=== PATIENT | male | born 1975 | race Two or more races ===

== ENCOUNTER 2024-06-15 10:49 | Outpatient (AMB) | payer MEDICAID, SELFPAY ==
--- NOTE | 2024-06-15 08:48 | PD.RESCLINIC ---
Vital Signs 06/15/24 11:07 Height 1.78 m Height Method Stated Weight 98.033 kg Weight Measurement Method Standing Scale BMI 30.9 BP 121/81 Blood Pressure Source Automatic Cuff Blood Pressure Location Left Upper Arm Position Sitting Respiration 16 Pulse 74 Pulse Source Monitor Temp 97.2 F Temp Source Oral Pulse Oximetry (%) 98 Oxygen Delivery Method Room Air Allergies/Meds Allergies & Medications Allergies No Known Allergies Allergy (Verified 06/15/24 11:08) Medication Reconciliation atorvastatin 80 mg tablet 80 mg PO QPM #30 tabs 09/06/22 [Rx Confirmed 06/15/24] fenofibrate 150 mg capsule 150 mg PO QDAY #30 caps 09/06/22 [Rx Confirmed 06/15/24] ibuprofen 800 mg tablet 800 mg PO TID PRN pain #30 tabs 07/28/23 [Rx Confirmed 06/15/24] aspirin 81 mg tablet,delayed release (Adult Aspirin Regimen) 81 mg PO HS #30 tabs 06/01/24 [Rx Confirmed 06/15/24] lisinopril 5 mg tablet 5 mg PO QDAY #30 tabs 06/01/24 [Rx Confirmed 06/15/24] omega 8-xhm-jks-fish oil 300 mg-1,000 mg capsule (Fish Oil) 1 cap PO QDAY #30 caps 06/01/24 [Rx Confirmed 06/15/24] dapagliflozin propanediol 5 mg tablet (Farxiga) 5 mg PO QAM #30 tabs 06/15/24 [Rx] metformin 1,000 mg tablet 1,000 mg PO QDAY #30 tabs 06/15/24 [Rx] MA Intake Visit Data Collection New Patient or Established: Established Patient (seen at [facility] within 3 years) Seen by Clinical Staff ONLY (RN/MA): No Pain Present Currently: Yes Pain Location: Head Pain scale:: 5 Pain Scale Used: De La Cruz-Angel/Numerical Coating And Baking Operator Required: No PCP or OBGYN visit in last 3 months: Yes Hx Now: Yes Do You Feel Safe at Home: Yes Authorities Contacted: N/A Smoking Status Smoking Status: Never smoker Immunization / Flu Flu Vaccine in the Last 12 Months: No Flu Vaccine Exclusion Criteria: No Exclusion Criteria Past Medical History Past Medical History NEUROLOGIC: Negative Neurological Disorders or Seizures CARDIAC: Positive Hypercholesterolemia; Negative Cardiac Disorders or Congestive Heart Failure RESPIRATORY: Negative Chronic Obstructive Pulmonary Disease (COPD) or Asthma GASTROINTESTINAL: Positive Gastrointestinal Disorders and Pancreatitis (similar episode two years ago with dietary precipitant) GENITOURINARY: Negative Genitourinary Disorders or Renal Disease REPRODUCTIVE: Negative Breast Cancer ENDOCRINE: Positive Endocrine Disorders and Diabetes Mellitus Type 2; Negative Diabetes Mellitus Type 1 HEMATOLOGIC: Negative Blood Disorders or Sickle Cell Disease OTHER HISTORY: Positive Hospitalization (Pancreatitis); Negative Blood Transfusions, Blood Transfusion Reaction, Anesthesia Reactions, Organ Transplant, Chemotherapy, Radiation Therapy, Hyperbaric Therapy, MRSA, VRSA, Vancomycin-Resistant Enterococci, Clostridium Difficile, Cancer or Breast Cancer Family History FAMILY HISTORY: Negative Family Respiratory Disorders, Family Cardiac Disorders, Family Gastrointestinal Problems, Family Cancer, Family Surgery or Family Anesthesia Reaction Surgical History SURGICAL: Positive Abdominal Surgery (None); Negative Cardiac Surgery, Endocrine Surgery, Thyroidectomy, Ear Surgery, Neurologic Surgery, Brain Shunt, Mastectomy, Vasectomy or Organ Transplant Social History SMOKING STATUS: Smoking status: Never smoker PACK YEARS: Pack-Years: 20 SECOND HAND EXPOSURE: second hand exposure: No ALCOHOL: Alcohol Intake: Former ALCOHOL FREQUENCY: Alcohol Intake Frequency: holidays/special occasions only HOUSING: Housing: House LIVES WITH: Lives With: Family and Spouse Patient Portal Questionaires PHQ-9 PHQ-2 Over the last 2 weeks, how often have you been bothered by any of the following problems? 1. Little interest or pleasure in doing things: not at all 2. Feeling down, depressed, or hopeless: not at all Total score: 0 PHQ-9 3. Trouble falling or staying asleep, or sleeping too much: Not at all 4. Feeling tired or having little energy: Not at all 5. Poor appetite or overeating: Not at all 6. Feeling bad about yourself - or that you are a failure or have let yourself or your family down: Not at all 7. Trouble concentrating on things, such as reading the newspaper or watching television: Not at all 8. Moving or speaking so slowly that other people could have noticed? - Or the opposite - being so fidgety or restless that you have been moving around a lot more than usual: not at all 9. Thoughts that you would be better off or of hurting yourself in some way: Not at all Total score: 0 If you checked off any problems, how difficult have these problems made it for you to do your work, take care of things at home, or get along with other people?: not difficult at all Source: Developed by Drs. Jose Olguin, Marcia Sahu, Hunter Amor and colleagues, with an educational nigel from [employer]. Depression screen completed yes Social History Living Situation History Marital Status: Single Lives With: Family Housing: House Tobacco History Smoking Status: Never smoker Pack-Years: 20 Second Hand Smoke Exposure: No Alcohol History Alcohol Intake: Former Alcohol Intake Frequency: holidays/special occasions only Domestic Abuse History Do You Feel Safe at Home: Yes Review of Systems Report any current symptoms Only answer those that you have currently: Past Medical History Past Medical History Have you ever been diagnosed with any of the following: Neurological Problems Seizures: No Cardiology Problems Hypercholesterolemia: Yes Congestive Heart Failure: No Respiratory Problems Chronic Obstructive Pulmonary Disease (COPD): No Asthma: No Stomache/Intestinal Problems Pancreatitis: Yes (similar episode two years ago with dietary precipitant) Genital/Urinary Problems Renal Disease: No Reproductive Problems Breast Cancer: No Endocrine Problems Diabetes Mellitus Type 1: No Diabetes Mellitus Type 2: Yes Blood Problems Sickle Cell Disease: No Other Problems Hospitalization: Yes (Pancreatitis) Blood Transfusions: No Blood Transfusion Reaction: No Anesthesia Reactions: No Organ Transplant: No Chemotherapy: No Radiation Therapy: No Hyperbaric Therapy: No MRSA: No VRSA: No Vancomycin-Resistant Enterococci: No Clostridium Difficile: No Cancer: No Surgical History Thyroidectomy: No History of Present Illness HPI Narrative 05/10/24: Tele visit appt following up for recurrent pancreatitis. He was previously admitted for acute pancreatitis and found to have hypertriglyceridemia. History of recurrent pancreatitis in the past. Currently on high-dose statin and fenofirate which she is taking daily. Here for annual visit and repeat lipid panel. Has mild epigastric pain. Denies headaches, dizziness, lightheadedness, chest pain, shortness of breath, cough, GI or urinary symptoms. Currently not drinking alcohol or using tobacco. 06/01/24: Tele vist, follow-up on lab orderes. Feels well, no complaints at this time. We had a discussion regarding lifestyle and overall health. He states he is taking his medications as prescribed. Avoiding sugar and high carb except for bread which he is working on cutting down. Trying to implement an daily exercise routine which includes 30 to 45 minutes of brisk walking daily. New labs showed elevated triglycerides 1269, GLUCOSE 291 and A1c 12.2. We started new medications for diabetes and hyperlipidemia. Will order a test for FHS and follow-up with labs. 06/15/24: In-person follow-up after starting JANUMET and NIACIN/OMEGA-3. His test for FHS came back negative. Unclear if he qulifies for OLEZARSEN but we will follow-up after repeat lipid panel in 2 months. Also follow-up on DM after starting JANUMET. Will give FREESTYLE sensor today and see how he is doing with JANUMET. Review of Systems Review of Systems Narrative Review of Systems: GENERAL: Denies fevers/chills or diaphoresis. HEENT: Denies headache or visual/hearing changes. Denies nasal discharge. NEURO: Denies unusual weakness or difficulty speaking. CARDIO: Denies chest pain or palpitations. PULM: Denies SOB, coughing, or wheezing. GI: Denies abdominal pain, N/V/C/D/reflux/gas, bright red blood per rectum or melena. Reports having BMs. URO: Denies burning/itching/pain/urinary changes. MSK/EXT/SKIN: Denies joint/skeletal/muscle pain, issues/changes in upper or lower extremities, itchiness, or superficial pain. PSYCH: Cooperative, pleasant mood & affect. The rest of the review of systems is otherwise negative. Objective/Exam Narrative Physical exam: GENERAL Normal appearing adult male. HEENT NCAT.?JACQUIE. Oral mucosa is moist. Patent Nares NECK Supple, nontender, no thyromegaly, no meningismus, no JVD, no step offs CHEST RRR, no m/g/r CTAB, no w/r/r. Symmetrical chest rise. No intercostal subcostal retraction Atraumatic, nontender, no crepitus, symmetrical expansion. ABDOMEN Soft, flat, nontender. No guarding/rebound tenderness/masses. Bowel sounds presents EXTREMITIES No edema/cyanosis.? SKIN Warm and dry, no jaundice/rashes. NEUROMUSCULAR No lumbar or midline, no CVA, no paraspinal muscle spasm or tenderness. Moves all 4 extremities well, with full ROM and good CSM. NUNEZ x4, CN II-XII grossly intact. No focal neurologic deficits. PSYCHIATRY Normal mood and affect, cooperative, no SI or HI or hallucinations. Assessment & Plan Diagnosis / Problem List (1) Diabetes mellitus: Status: Chronic Assessment & Plan: Newly diagnosed diabetes with A1C > 12 Did not tolerate JANUMET 2/2 GI upsets. Not checking glucose currently. In office fignerstick glucose 230. Refused insulin at this time Plan: Discontinue JANUMET Started Metformin 1000 mg daily Started FARXIGA 5 mg daily Given Free-style pastor 3 Continue lifestyle modifications as per discussion (2) Hypertriglyceridemia: Status: Chronic Assessment & Plan: Currently on ATORVASTATIN 80 mg and FENOFIBRATE 150 mg daily. Negative work-up for familial metabolic disorder. Likely related to hyperglycemia, anticipate improvement with better glycemic control Plan: Continue with current meds Discontinued NIACIN Continue glycemic control Repeat labs in 6 months (3) Knee pain, bilateral: Status: Acute Qualifiers: Chronicity: chronic Qualified Code(s): M25.561 - Pain in right knee; M25.562 - Pain in left knee; G89.29 - Other chronic pain Assessment & Plan: Has chronic ongoing bilateral knee pain, worse with activity, not worse in AM. Previously used PT which was helpful. Plan: Referral physical therapy (4) Former smoker, stopped smoking in distant past: Status: Chronic Assessment & Plan: Has 30-pack year history of tobacco smoking, quit 5 years ago. Denies active respiratory symptoms Plan: Ordered low-dose CT chest. Orders: Orders CT lung low-dose screening wo 06/15/24 Z72.0 - Tobacco use Referrals Physical Therapy - Referral M25.561 - Pain in right knee, M25.562 - Pain in left knee Office Procedures [facility] Level of Care Nursing/Assessment Patient Status: Established Patient Nursing Assessment/Reassessment: BP Monitoring, Medication Reconciliation, Update PMH in EMR and Vital Signs Coordination of Care: Complex Care and Chronic Disease 1-5, Consent,records obtained, informed consent, Education Simp Pt/Fam, Results/Orders obtained and Staff clarify orders Established Patient Charge Established Patient Point Assignment: 105 Established Patient Point Charge: EP Level 3 (80-115) Bedisde Glucose POC Ambulatory Location Ambulatory Dept Location: [facility] Glucose Result Bedside Glucose Monitorin
[2024-06-15 11:07] VITALS: BP 121/81; PULSE 74; RESP 16; TEMP 36.2; O2SAT 98; BMI 30.9
== END 2024-06-15 14:47 | disposition home or self-care (01) ==
LOC: HODAHC 10:49
PROVIDERS: Supervising Provider Internal Medicine
DX: E11.9 Type 2 diabetes mellitus without complications (principal); E78.1 Pure hyperglyceridemia; M25.562 Pain in left knee; M25.561 Pain in right knee; Z87.891 Personal history of nicotine dependence
CPT/HCPCS: 82948; 99213; G0463

== ENCOUNTER 2024-06-29 11:10 | Outpatient (AMB) | payer MEDICAID, SELFPAY ==
[2024-06-29 11:49] VITALS: BP 144/92; PULSE 67; RESP 16; TEMP 36.2; O2SAT 97; BMI 31.5
--- NOTE | 2024-06-29 11:49 | ACNOTE_ITS ---
Vital Signs 06/29/24 11:49 Height 1.78 m Height Method Stated Weight 99.847 kg Weight Measurement Method Standing Scale BMI 31.5 BP 144/92 H Blood Pressure Source Automatic Cuff Blood Pressure Location Left Upper Arm Position Sitting Respiration 16 Pulse 67 Pulse Source Monitor Temp 97.2 F Temp Source Temporal Artery Scan Pulse Oximetry (%) 97 Oxygen Delivery Method Room Air Allergies/Meds Allergies & Medications Allergies No Known Allergies Allergy (Verified 06/29/24 11:50) Medication Reconciliation ibuprofen 800 mg tablet 800 mg PO TID PRN pain #30 tabs 07/28/23 [Rx Confirmed 06/15/24] aspirin 81 mg tablet,delayed release (Adult Aspirin Regimen) 81 mg PO HS #30 tabs 06/01/24 [Rx Confirmed 06/15/24] lisinopril 5 mg tablet 5 mg PO QDAY #30 tabs 06/01/24 [Rx Confirmed 06/15/24] omega 7-yjx-bhb-fish oil 300 mg-1,000 mg capsule (Fish Oil) 1 cap PO QDAY #30 caps 06/01/24 [Rx Confirmed 06/15/24] dapagliflozin propanediol 5 mg tablet (Farxiga) 5 mg PO QAM #30 tabs 06/15/24 [Rx] metformin 1,000 mg tablet 1,000 mg PO QDAY #30 tabs 06/15/24 [Rx] atorvastatin 80 mg tablet 80 mg PO QPM #30 tabs 06/27/24 [Rx Confirmed 06/29/24] famotidine 20 mg tablet 20 mg PO QDAY #30 tabs 06/27/24 [Rx Confirmed 06/29/24] fenofibrate 150 mg capsule 150 mg PO QDAY #30 caps 06/27/24 [Rx Confirmed 06/29/24] MA Intake Visit Data Collection New Patient or Established: Established Patient (seen at [facility] within 3 years) Seen by Clinical Staff ONLY (RN/MA): No Pain Present Currently: No Pain Scale Used: De La CruzLatha/Numerical Receipt And Report Clerk Required: No PCP or OBGYN visit in last 3 months: Yes Hx Now: No Do You Feel Safe at Home: Yes Authorities Contacted: N/A Smoking Status Smoking Status: Never smoker Immunization / Flu Flu Vaccine in the Last 12 Months: No Flu Vaccine Exclusion Criteria: No Exclusion Criteria Past Medical History Past Medical History NEUROLOGIC: Negative Neurological Disorders or Seizures CARDIAC: Positive Hypercholesterolemia; Negative Cardiac Disorders or Congestive Heart Failure RESPIRATORY: Negative Chronic Obstructive Pulmonary Disease (COPD) or Asthma GASTROINTESTINAL: Positive Gastrointestinal Disorders and Pancreatitis (similar episode two years ago with dietary precipitant) GENITOURINARY: Negative Genitourinary Disorders or Renal Disease REPRODUCTIVE: Negative Breast Cancer ENDOCRINE: Positive Endocrine Disorders and Diabetes Mellitus Type 2; Negative Diabetes Mellitus Type 1 HEMATOLOGIC: Negative Blood Disorders or Sickle Cell Disease OTHER HISTORY: Positive Hospitalization (Pancreatitis); Negative Blood Transfusions, Blood Transfusion Reaction, Anesthesia Reactions, Organ Transplant, Chemotherapy, Radiation Therapy, Hyperbaric Therapy, MRSA, VRSA, Vancomycin-Resistant Enterococci, Clostridium Difficile, Cancer or Breast Cancer Family History FAMILY HISTORY: Negative Family Respiratory Disorders, Family Cardiac Disorders, Family Gastrointestinal Problems, Family Cancer, Family Surgery or Family Anesthesia Reaction Surgical History SURGICAL: Positive Abdominal Surgery (None); Negative Cardiac Surgery, Endocrine Surgery, Thyroidectomy, Ear Surgery, Neurologic Surgery, Brain Shunt, Mastectomy, Vasectomy or Organ Transplant Social History SMOKING STATUS: Smoking status: Never smoker PACK YEARS: Pack-Years: 20 SECOND HAND EXPOSURE: second hand exposure: No ALCOHOL: Alcohol Intake: Former ALCOHOL FREQUENCY: Alcohol Intake Frequency: holidays/special occasions only HOUSING: Housing: House LIVES WITH: Lives With: Family and Spouse Patient Portal Questionaires PHQ-9 PHQ-2 Over the last 2 weeks, how often have you been bothered by any of the following problems? 1. Little interest or pleasure in doing things: not at all PHQ-9 8. Moving or speaking so slowly that other people could have noticed? - Or the opposite - being so fidgety or restless that you have been moving around a lot more than usual: not at all Source: Developed by Drs. Jose Olguin, Marcia Sahu, Hunter Amor and colleagues, with an educational nigel from [employer]. Social History Living Situation History Lives With: Family Housing: House Tobacco History Smoking Status: Never smoker Pack-Years: 20 Second Hand Smoke Exposure: No Alcohol History Alcohol Intake: Former Alcohol Intake Frequency: holidays/special occasions only Domestic Abuse History Do You Feel Safe at Home: Yes Review of Systems Report any current symptoms Only answer those that you have currently: Past Medical History Past Medical History Have you ever been diagnosed with any of the following: Neurological Problems Seizures: No Cardiology Problems Hypercholesterolemia: Yes Congestive Heart Failure: No Respiratory Problems Chronic Obstructive Pulmonary Disease (COPD): No Asthma: No Stomache/Intestinal Problems Pancreatitis: Yes (similar episode two years ago with dietary precipitant) Genital/Urinary Problems Renal Disease: No Reproductive Problems Breast Cancer: No Endocrine Problems Diabetes Mellitus Type 1: No Diabetes Mellitus Type 2: Yes Blood Problems Sickle Cell Disease: No Other Problems Hospitalization: Yes (Pancreatitis) Blood Transfusions: No Blood Transfusion Reaction: No Anesthesia Reactions: No Organ Transplant: No Chemotherapy: No Radiation Therapy: No Hyperbaric Therapy: No MRSA: No VRSA: No Vancomycin-Resistant Enterococci: No Clostridium Difficile: No Cancer: No Surgical History Thyroidectomy: No History of Present Illness HPI Narrative 05/10/24: Tele visit appt following up for recurrent pancreatitis. He was previously admitted for acute pancreatitis and found to have hypertriglyceridemia. History of recurrent pancreatitis in the past. Currently on high-dose statin and fenofirate which she is taking daily. Here for annual visit and repeat lipid panel. Has mild epigastric pain. Denies headaches, dizziness, lightheadedness, chest pain, shortness of breath, cough, GI or urinary symptoms. Currently not drinking alcohol or using tobacco. 06/01/24: Tele vist, follow-up on lab orderes. Feels well, no complaints at this time. We had a discussion regarding lifestyle and overall health. He states he is taking his medications as prescribed. Avoiding sugar and high carb except for bread which he is working on cutting down. Trying to implement an daily exercise routine which includes 30 to 45 minutes of brisk walking daily. New labs showed elevated triglycerides 1269, GLUCOSE 291 and A1c 12.2. We started new medications for diabetes and hyperlipidemia. Will order a test for FHS and follow-up with labs. 06/15/24: In-person follow-up after starting JANUMET and NIACIN/OMEGA-3. His test for FHS came back negative. Unclear if he qulifies for OLEZARSEN but we will follow-up after repeat lipid panel in 2 months. Also follow-up on DM after starting JANUMET. Will give FREESTYLE sensor today and see how he is doing with JANUMET. 06/29/24: Present follow-up after starting FARXIGA. He is tolerating medication well, drinking plenty of fluid. Denies any urinary symptoms. Was unable to install freestyle sensor. New sensor was given today. GLUCOSE reading was 156. Objective/Exam Narrative Physical exam: GENERAL * Normal appearing adult male. HEENT * NCAT.?JACQUIE. Oral mucosa is moist. Patent Nares NECK * Supple, nontender, no thyromegaly, no meningismus, no JVD, no step offs CHEST * RRR, no m/g/r * CTAB, no w/r/r. Symmetrical chest rise. No intercostal subcostal retraction * Atraumatic, nontender, no crepitus, symmetrical expansion. ABDOMEN * Soft, flat, nontender. No guarding/rebound tenderness/masses. * Bowel sounds presents EXTREMITIES * No edema/cyanosis.? SKIN * Warm and dry, no jaundice/rashes. NEUROMUSCULAR * No lumbar or midline, no CVA, no paraspinal muscle spasm or tenderness. * Moves all 4 extremities well, with full ROM and good CSM. * NUNEZ x4, CN II-XII grossly intact. * No focal neurologic deficits. PSYCHIATRY * Normal mood and affect, cooperative, no SI or HI or hallucinations. Assessment & Plan Diagnosis / Problem List (1) Diabetes mellitus: Status: Chronic Assessment & Plan: Tolerating FARXIGA and METFORMIN well. Drinking plenty of fluids. Denies urinary symptoms. Reports improvement in energy. Glucose reading 156 today. Plan: Continue Metformin 1000 mg daily Continue FARXIGA 5 mg daily Given second Free-style pastor 3 Continue lifestyle modifications as per discussion Return to office in 1 month. (2) GERD (gastroesophageal reflux disease): Status: Acute Qualifiers: Esophagitis bleeding: without hemorrhage Assessment & Plan: Chronic problem. Has been on OMEPRAZOLE for greater than 1 year. 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 Will start FAMOTIDINE 20 mg daily instead Plan: Start FAMOTIDINE 20 mg (3) Hypertriglyceridemia: Status: Chronic Assessment & Plan: Currently on ATORVASTATIN 80 mg and FENOFIBRATE 150 mg daily. Negative work-up for familial metabolic disorder. Likely related to hyperglycemia, anticipate improvement with better glycemic control Plan: Refill ATORVASTATIN on Thursday Refill FENOFIBRATE on Thursday (4) Knee pain, bilateral: Status: Acute Qualifiers: Chronicity: chronic Qualified Code(s): M25.561 - Pain in right knee; M25.562 - Pain in left knee; G89.29 - Other chronic pain Assessment & Plan: Has chronic ongoing bilateral knee pain, worse with activity, not worse in AM. Previously used PT which was helpful. Plan: PT ordered last visit, pending auth. (5) Former smoker, stopped smoking in distant past: Status: Chronic Assessment & Plan: Has 30-pack year history of tobacco smoking, quit 5 years ago. Denies active respiratory symptoms Plan: CT auth pending Additional Assessment Internal Medicine Attending Note: Case discussed with and agree with note and management plan of Resident Physician as per Resident's Note above. Issues of concern for present visit are as follows: Follow-up visit. History of acute pancreatitis secondary to hypertriglyceridemia. Previous level of 1269. Patient started on high-dose statin and fenofibrate. Also started on niacin and omega-3 fish oil capsules. Testing for familial/genetic cause of hypertriglyceridemia was negative. Continue current treatment for now and reassess in 2 months. Diabetes self-care reviewed including diet, exercise, footcare, eye care. Patient has been started on Janumet. Better control of blood sugar should help with triglycerides as well. We will prescribe a CGM for the patient. History of chronic bilateral knee pain, has had physical therapy in the past which has helped, we will make a new referral today. Low-dose CT chest ordered for lung cancer screening given [id number] history of smoking, quit 5 years ago. Trent Baptiste MD Office Procedures [facility] Level of Care Nursing/Assessment Patient Status: Established Patient Nursing Assessment/Reassessment: Medication Reconciliation, Update PMH in EMR and Vital Signs Coordination of Care: Complex Care and Chronic Disease 1-5, Consent,records obtained, informed consent, Education Simp Pt/Fam and Staff clarify orders Miscellaneous Interventions: Complete POC testing Established Patient Charge Established Patient Point Assignment: 95 Established Patient Point Charge: EP Level 3 (80-115)
== END 2024-06-29 11:49 | disposition home or self-care (01) ==
LOC: HODAHC 11:10
DX: E11.9 Type 2 diabetes mellitus without complications (principal); K21.9 Gastro-esophageal reflux disease without esophagitis; E78.1 Pure hyperglyceridemia; Z79.84 Long term (current) use of oral hypoglycemic drugs; M25.562 Pain in left knee; M25.561 Pain in right knee; Z87.891 Personal history of nicotine dependence
CPT/HCPCS: 99213; G0463

== ENCOUNTER 2025-03-27 20:03 | Emergency (ER) | payer MEDICAID, SELFPAY ==
--- NOTE | 2025-03-27 20:47 | PD.EDABDPN ---
ED Abdominal Pain RME/HPI General Chief Complaint: Abdominal Pain Stated complaint: ABD PAIN Time seen by provider: 03/27/25 20:40 Arrival date/time: 03/27/25 20:03 RME / HPI RME / HPI narrative: The patient is a 50-year-old male with a past medical history significant for recurrent pancreatitis secondary to hypertriglyceridemia and type 2 diabetes mellitus who presented to the emergency department with two days of dull epigastric abdominal pain. The pain began after consuming a high-fat meal heavy in cheese and initially was rated as 8/10 in severity, similar to his prior episodes of acute pancreatitis. He also reported associated nausea without vomiting. By the time of presentation, his symptoms had significantly improved, with pain rated at 2/10, but he sought evaluation due to concern for recurrent pancreatitis. He denied fever, chills, vomiting, diarrhea, constipation, urinary symptoms, recent travel, sick contacts, alcohol use, or illicit drug use. On evaluation, his blood pressure was elevated at 165/109 mmHg and remained persistently elevated on repeat measurement. Physical examination was otherwise unremarkable, with resolution of abdominal pain and no nausea or vomiting. Laboratory studies demonstrated an unremarkable CBC, glucose of 111 mg/dL, HbA1c of 7.1%, and markedly elevated triglycerides at 1469 mg/dL. Total cholesterol was 279 mg/dL, HDL was low at 22 mg/dL, and LDL could not be calculated due to severe hypertriglyceridemia. Lipase and amylase levels were within normal limits, making acute pancreatitis unlikely at this time. Related Data Previous Rx's ?Medication ?Instructions ?Recorded ibuprofen 800 mg tablet 800 mg PO TID PRN pain #30 tabs 07/28/23 aspirin 81 mg tablet,delayed 81 mg PO HS #30 tabs 06/01/24 release (Adult Aspirin Regimen) dapagliflozin propanediol 5 mg 5 mg PO QAM #30 tabs 06/15/24 tablet (Farxiga) famotidine 20 mg tablet 20 mg PO QDAY #30 tabs 06/27/24 blood-glucose sensor (FreeStyle #1 ea 07/11/24 Anisha 3 Plus Sensor device) omega 7-pbc-pvv-fish oil 300 1 cap PO QDAY #30 caps 09/08/24 mg-1,000 mg capsule (Fish Oil) metformin 1,000 mg tablet 1,000 mg PO QDAY #90 tabs 12/08/24 atorvastatin 80 mg tablet (Lipitor) 80 mg PO QPM #30 tabs 03/27/25 fenofibrate 160 mg tablet 160 mg PO QDAY 90 days #90 tabs 03/27/25 losartan 50 mg tablet 50 mg PO QDAY #30 tabs 03/27/25 Allergies Allergy/AdvReac Type Severity Reaction Status Date / Time No Known Allergies Allergy Verified 03/27/25 20:04 ED Exam Narrative Physical exam: GENERAL Normal appearing male, NAD HEENT NCAT.?JACQUIE. Oral mucosa is moist. Patent Nares NECK Supple, nontender, no JVD. CHEST RRR, no m/g/r CTAB, no w/r/r, symmetrical expansion. ABDOMEN Soft, flat, mildly tender in the epigastrium. No guarding/rebound tenderness/masses. Negative Fitzpatrick sign. Bowel sounds presents EXTREMITIES No edema/cyanosis.? SKIN Warm and dry, no jaundice/rashes. NEUROMUSCULAR No lumbar or midline, no CVA, no paraspinal muscle spasm or tenderness. Moves all 4 extremities well, with full ROM and good CSM. NUNEZ x4, CN II-XII grossly intact. No focal neurologic deficits. PSYCHIATRY Normal mood and affect, cooperative, no SI or HI or hallucinations. Course Quality Measures none Orders Category Date Time Status A1C [Glycohemoglobin w (eAG)] Stat Lab 03/27/25 20:27 Completed Amylase Stat Lab 03/27/25 20:27 Completed CBC Stat Lab 03/27/25 20:27 Completed CMP [Comprehensive Metabolic Panel] Stat Lab 03/27/25 20:27 Completed Lipase Stat Lab 03/27/25 20:27 Completed Lipid Panel Stat Lab 03/27/25 20:27 Completed TSH [Thyroid Stimulating Hormone] AM DRAW Lab 03/28/25 05:00 Ordered Vital Signs Vital signs: Vital Signs Temperature 98.2 F 03/27/25 20:58 Pulse Rate 67 03/27/25 20:58 Respiratory Rate 20 03/27/25 20:58 Blood Pressure 165/109 H 03/27/25 20:58 Pulse Oximetry (%) 98 03/27/25 20:58 Oxygen Delivery Method Room Air 03/27/25 20:58 Abdominal Pain MDM Patient data External records reviewed:: [facility] previous records Clinical information provided by:: patient Social determinants that could affect healthcare access:: alcohol use Patient has the following chronic illnesses:: HLD How is presenting disease/condition affected by chronic disease/condition?: caused by Evaluation data The following diagnostics were reviewed and interpreted by me:: lab results Lab and/or radiology exams considered but not ordered:: CT abdomen Interpretation Summary: NA Medications / Prescriptions Medications or Prescriptions considered but not ordered:: None Medication administrations:: None Consultations Consultation(s) initiated? (list below): Yes Diagnosis Differential diagnosis abdominal pain: abdominal pain Most likely diagnosis given after review of the tests above:: Nonspecific abdominal pain (resolved) Admission Indicated Admission indicated?: not indicated Admission Request Was there a request for admission?: No Disposition Plan Disposition Plan: Discharge Discharge Attestation Discharge Attestation: The patient and all family members were given an opportunity to ask questions and understood the discharge instructions. Discharge instructions specifically effects, indications for sooner follow up or return to the emergency department, and the expected course of current diagnosis. Patient condition: Stable Discharge Plan Plan Patient Disposition: HOME (Self Care) Patient condition on transfer: Stable Prescriptions/Referrals Prescriptions/Med Rec: New atorvastatin [Lipitor] 80 mg tablet 80 mg PO QPM Qty: 30 3RF losartan 50 mg tablet 50 mg PO QDAY Qty: 30 0RF Continued famotidine 20 mg tablet 20 mg PO QDAY Qty: 30 3RF Rx Instructions: Take 1 tablet in AM dapagliflozin propanediol [Farxiga] 5 mg tablet 5 mg PO QAM Qty: 30 3RF aspirin [Adult Aspirin Regimen] 81 mg tablet,delayed release (DR/EC) 81 mg PO HS Qty: 30 5RF (DME) FreeStyle Anisha 3 Plus Sensor Device See Rx Instructions .Route Qty: 1 6RF Rx Instructions: As directed omega 7-cfa-ikm-fish oil [Fish Oil] 300-1,000 mg capsule 1 cap PO QDAY Qty: 30 3RF metformin 1,000 mg tablet 1,000 mg PO QDAY Qty: 90 3RF fenofibrate 160 mg tablet 160 mg PO QDAY 90 Days Qty: 90 2RF ibuprofen 800 mg tablet 800 mg PO TID PRN (Reason: pain) Qty: 30 0RF Discontinued lisinopril 5 mg tablet 5 mg PO QDAY Qty: 30 5RF atorvastatin 20 mg tablet 20 mg PO QHS Qty: 90 0RF Problem List Clinical Impression: Abdominal pain, Hypertriglyceridemia, Diabetes mellitus, Hypertension Patient/Caregiver Discharge Instructions Print Language: [place] Stand Alone Forms: Nanci Award Info., Patient Portal Info Letter
[2025-03-27 20:50] LABS: Basophils # (Auto) 0.1 Thou/mm3 (0.0-0.2); Basophils % (Auto) 1 % (0-2.5); Eosinophils # (Auto) 0.3 Thou/mm3 (0.0-0.5); Eosinophils % (Auto) 4 % (0-10); Hematocrit 39.6 % (41.0-53.0); Hemoglobin 13.9 g/dL (13.5-16.0); Immature Granulocytes Auto 0.01 Thou/mm3 (0.00-0.00); Lymphocytes # (Auto) 2.9 Thou/mm3 (1.0-4.8); Lymphocytes % (Auto) 36 % (10-50); Mean Corpuscular HGB Conc 35.1 g/dl (31.0-37.0); Mean Corpuscular Hemoglobin 29.3 pg (25.0-35.0); Mean Corpuscular Volume 84 fL (80-100); Monocytes # (Auto) 0.6 Thou/mm3 (0.0-0.8); Monocytes % (Auto) 8 % (0-12); Neutrophils # (Auto) 4.1 Thou/mm3 (1.8-7.7); Neutrophils % (Auto) 52 % (37-80); Nucleated Red Blood Cell # 0.00 Thou/mm3 (0.00-0.00); Nucleated Red Blood Cell % 0 /100 WBC (0); Platelet Count 213 Thou/mm3 (140-440); RDW Standard Deviation 38.5 fL (35.1-43.9); Red Blood Count 4.74 Miln/mm3 (4.50-5.90); White Blood Count 8.0 Thou/mm3 (3.8-10.6)
[2025-03-27 20:58] VITALS: BP 165/109; PULSE 67; RESP 20; TEMP 36.8; O2SAT 98
[2025-03-27 21:00] LABS: Glucose Estimated Average 157 mg/dL (80-131); Hemoglobin A1C 7.1 % Hgb (4.8-6.0)
[2025-03-27 21:20] LABS: Alanine Aminotransferase 19 U/L (10-49); Albumin, Serum 4.3 gm/dL (3.5-5.0); Albumin/Globulin Ratio 1.3 (1.2-2.2); Alkaline Phosphatase 66 U/L (46-116); Amylase 85 U/L (30-118); Anion Gap 19 (7-16); Aspartate Amino Transferase 18 U/L (0-34); BUN/Creatinine Ratio 9 Ratio (12-20); Bilirubin,Total 0.6 mg/dL (0.3-1.2); Blood Urea Nitrogen 7 mg/dL (9-23); Calcium 9.4 mg/dL (8.3-10.6); Calcium (Corrected) 9.4 mg/dL (8.5-10.1); Carbon Dioxide 17.8 mMol/L (20.0-31.0); Cardiac Risk Estimate 12.4 RATIO (4.0-6.7); Chloride 101 mMol/L (98-107); Cholesterol 273 mg/dL (132-200); Creatinine (Component) 0.8 mg/dL (0.6-1.3); Globulin 3.2 gm/dL (2.3-3.5); Glucose 111 mg/dL (74-106); HDL Cholesterol 22 mg/dL (40-60); Lipase 48 U/L (12-53); Osmolality,Calculated 274 (275-295); Potassium 3.5 mMol/L (3.4-5.1); Sodium 138 mMol/L (136-145); Total Protein 7.5 gm/dL (5.7-8.2); Triglycerides 1469 mg/dL (30-150); eGFR > 60 See Note
== END 2025-03-27 22:14 | disposition home or self-care (01) ==
LOC: SERX 22:15
PROVIDERS: Emergency Provider Emergency Medicine
DX: R10.13 Epigastric pain (principal); E78.1 Pure hyperglyceridemia; E11.9 Type 2 diabetes mellitus without complications; I10 Essential (primary) hypertension; Z79.84 Long term (current) use of oral hypoglycemic drugs
CPT/HCPCS: 36415; 80053; 80061; 82150; 83036; 83690; 85025; 99282